=== PATIENT | male | born 1950 | race Caucasian/White ===

== ENCOUNTER 2018-07-15 07:32 | Day surgery (SDC) | payer MEDICARE ==
[2018-07-15] VITALS (7 sets, daily range): BP systolic 116–128; BP diastolic 43–86
[~2018-07-15] VITALS: Ht 167.6 cm; Wt 93.1 kg
[~2018-07-15 07:32] MED LIST: ASPI-1071 PO; ATOR10TA87 PO; CLOP75TA35 PO; LISI-222 PO; LOP25T PO
[2018-07-15] MEDS ORDERED: normal saline 1000ml 1,000 ML IV PRN (07:50)
[2018-07-15] MEDS ORDERED: normal saline 1000ml 1,000 ML IV SCH (08:03)
[2018-07-15] MEDS ORDERED: LIDOcaine 1%/PF 5ML 10 MG/ML VIAL ONE (08:09)
[2018-07-15] MEDS ORDERED: heparin sodium, porcine/PF 100unit/ml 5ML syringe ONE (08:09)
[2018-07-15] MEDS ORDERED: FAMO-128 PO (08:18)
[2018-07-15] MEDS ORDERED: fentaNYL/PF 50MCG/1 ML 2ML syringe IV PRN (08:20)
[2018-07-15] MEDS ORDERED: midazolam 2 mg/2 ml injection IV PRN (08:20)
[2018-07-15] MEDS ORDERED: FISH1CAP15 PO (08:21)
[2018-07-15] MEDS ORDERED: PANT-47 PO (08:21)
[2018-07-15] MEDS ORDERED: fentaNYL/PF 50MCG/1 ML 2ML syringe ONE (08:22)
[2018-07-15] MEDS ORDERED: midazolam 2 mg/2 ml injection ONE (08:22)
[2018-07-15] MEDS ORDERED: METO25TA6 PO (08:26)
[2018-07-15] MEDS ORDERED: CLOP75TA15 PO (08:26)
[2018-07-15] MEDS ORDERED: ATOR20TA PO (08:26)
[2018-07-15] MEDS ORDERED: LISI-600 PO (08:26)
[2018-07-15] MEDS ORDERED: ASPI-611 PO (08:26)
== END 2018-07-15 10:30 | disposition home or self-care (01) ==
LOC: SSTAY O 07:32
PROVIDERS: ATTEND Radiology Diagnostic Radiology
DX: C07 Malignant neoplasm of parotid gland (principal); I25.10 Atherosclerotic heart disease of native coronary artery without angina pectoris; I10 Essential (primary) hypertension; E78.00 Pure hypercholesterolemia, unspecified; Z79.82 Long term (current) use of aspirin; Z95.5 Presence of coronary angioplasty implant and graft; Z87.891 Personal history of nicotine dependence; Z87.442 Personal history of urinary calculi; Z86.74 Personal history of sudden cardiac arrest; Z72.89 Other problems related to lifestyle; Z79.899 Other long term (current) drug therapy; Z98.890 Other specified postprocedural states; Z80.1 Family history of malignant neoplasm of trachea, bronchus and lung
CPT/HCPCS: 36561; 76937; 77001; 99152; 99153; A6219; C1788; C1894; J1642; J2001; J2250; J3010; J7030; A4620

== ENCOUNTER 2020-05-20 11:28 | Day surgery (SDC) | payer MEDICARE ==
[~2020-05-20] VITALS: Ht 167.6 cm; Wt 100.2 kg
[~2020-05-20 11:28] MED LIST changes: -ASPI-1071 PO; +ASPI-611 PO; -ATOR10TA87 PO; +ATOR20TA PO; +CLOP75TA15 PO; -CLOP75TA35 PO; +FAMO-128 PO; +FISH1CAP15 PO; -LISI-222 PO; +LISI-600 PO; -LOP25T PO; +METO25TA6 PO; +PANT-47 PO
[2020-05-20 11:45] VITALS: BP 151/71
[2020-05-20] MEDS ORDERED: LISI-604 PO (12:03)
[2020-05-20] MEDS ORDERED: ESCI10TA61 PO (12:03)
[2020-05-20] MEDS ORDERED: LACT1CAP65 PO (12:04)
[2020-05-20] MEDS ORDERED: LIDOcaine 1%/PF 5ML 10 MG/ML VIAL ONE (12:13)
[2020-05-20 12:22] VITALS: BP 151/71
[2020-05-20 13:35] VITALS: BP 148/78
== END 2020-05-20 13:35 | disposition home or self-care (01) ==
LOC: SSTAY O 11:28
PROVIDERS: ATTEND Radiology Diagnostic Radiology
DX: Z45.2 Encounter for adjustment and management of vascular access device (principal); Z79.899 Other long term (current) drug therapy; Z79.82 Long term (current) use of aspirin; Z85.89 Personal history of malignant neoplasm of other organs and systems
CPT/HCPCS: 36590

== ENCOUNTER 2024-09-10 17:28 | Emergency (ER) | payer MEDICARE ==
[~2024-09-10] VITALS: Ht 165.1 cm; Wt 109.1 kg
[~2024-09-10 17:28] MED LIST changes: -CLOP75TA15 PO; +ESCI-8 PO; -FAMO-128 PO; +LACT1CAP65 PO; -LISI-600 PO; +LISI5TAB22 PO; -METO25TA6 PO; -PANT-47 PO
[2024-09-10 17:29] VITALS: BP 191/86; PULSE 78; RESP 16; TEMP 97.4; O2SAT 94
[2024-09-10] MEDS: LIDOcaine 1% 30ml preserv. free vial IJ ONE (18:16)
[2024-09-10] MEDS ORDERED: CEPH-585 PO (18:55)
[2024-09-10] MEDS: TETanus/Pertussis (Acell)/Diphther VAC/PF (Tdap-Adult) 0.5ml syringe IMVAC ONE (19:38)
== END 2024-09-10 19:45 | disposition home or self-care (01) ==
LOC: ER 17:28
DX: S61.210A Laceration without foreign body of right index finger without damage to nail, initial encounter (principal); S61.212A Laceration without foreign body of right middle finger without damage to nail, initial encounter; E78.00 Pure hypercholesterolemia, unspecified; I10 Essential (primary) hypertension; X58.XXXA Exposure to other specified factors, initial encounter; Y93.89 Activity, other specified; Y92.89 Other specified places as the place of occurrence of the external cause; Y99.8 Other external cause status
CPT/HCPCS: 12001; 90715; 99283; A6402; A6446; A6449; G0008; 90471

== ENCOUNTER 2024-12-16 05:51 | Outpatient (CLI) | payer MEDICARE ==
[~2024-12-16 05:51] MED LIST changes: +CEPH-585 PO
== END 2024-12-16 23:59 | disposition home or self-care (01) ==
LOC: MRI02 05:51
PROVIDERS: ATTEND Pediatrics Sports Medicine
DX: S83.242A Other tear of medial meniscus, current injury, left knee, initial encounter (principal); M71.22 Synovial cyst of popliteal space [Baker], left knee; M94.262 Chondromalacia, left knee; M25.462 Effusion, left knee; M25.562 Pain in left knee; X58.XXXA Exposure to other specified factors, initial encounter; Y93.89 Activity, other specified; Y92.89 Other specified places as the place of occurrence of the external cause; Y99.8 Other external cause status
CPT/HCPCS: 73721